=== PATIENT | female | born 1985 | race Caucasian/White ===

== ENCOUNTER 2017-03-09 08:15 | Inpatient (IN) | payer OTHER ==
[2017-03-09 09:03] VITALS: BMI 34.0
[2017-03-09 09:37] LABS: BASOPHIL 0.5 % (0-2.0); EOSINOPHIL 1.8 % (0-4.5); MCH 29.5 pg (25.7-33.7); MCHC 33.9 g/dl (32.0-36.0); MEAN CELL VOLUME 87.1 fl (80-96); MEAN PLT VOLUME 8.2 fl (7.5-11.1); PLATELET COUNT 216 K/MM3 (134-434); RDW 14.7 % (11.6-15.6); WHITE BLOOD COUNT 8.7 K/mm3 (4.0-10.0)
[2017-03-09 09:58] LABS: ANION GAP 9 (8-16); CALCIUM 8.6 mg/dL (8.5-10.1); CO2 22 mmol/L (21-32); CREATININE 0.4 mg/dL (0.55-1.02); GLUCOSE,RANDOM 91 mg/dL (74-106)
[2017-03-09 10:02] LABS: INR 0.96 (0.82-1.09); PROTHROMBIN TIME (PATIENT) 10.6 SEC (9.98-11.88)
[2017-03-09 10:04] LABS: ACTIVATED PTT 24.7 SECONDS (26.9-34.4)
[2017-03-09] MEDS ORDERED: DINOPROSTONE 10 MG VAGINAL SUPPOSITORY VG ONE (10:30)
[2017-03-09] MEDS ORDERED: PROMETHAZINE HCL 25 MG/1 ML VIAL IVPUSH ONE (11:06)
[2017-03-09] MEDS ORDERED: TUBERCULIN PPD 5 TU/0.1ML SYRINGE (IN PATIENT USE ONLY) ID ONE (11:06)
[2017-03-09] MEDS ORDERED: BUTORPHANOL TARTRATE 1 MG/ML VIAL IVPB ONE (11:06)
[2017-03-09] MEDS: DEXTROSE 5%-LACTATED RINGERS 1,000 ML IV SCH ×3 (12:17→22:52)
--- NOTE | 2017-03-09 12:44 | PN ---
Ante-Partal Exam - Subjective Subjective: Came to evaluate patient for variable decelerations and prolonged decelerations on monitor. Mom with cervidil in place - put in around 10:30 am. Since 11: 30 am patient has had 3 variable decelerations and one prolonged deceleration ( 3 minutes long) drea to the 90s. Decelerations not related to contractions. Patient feeling some tightening but no pain/contractions. No VB/LOF. +FM. FHTs have recovered after IV fluids, administration of O2 and position change. FHTs now 150 bpm with moderate variability and accelerations. Vital Signs: Vital Signs Temperature 98.0 F 03/09/17 10:00 Pulse Rate 89 03/09/17 11:59 Respiratory Rate 20 03/09/17 11:59 Blood Pressure 121/80 03/09/17 11:59 O2 Sat by Pulse Oximetry (%) Bleeding: No Headache: No Visual changes: No Right upper quadrant pain: No Pain (scale 1-10): 0 - Contractions Contractions: No Monitor Mode: External - Exam during Labor Heart Rate: 150 Variability: Moderate Category: II Monitor Accelerations: Present Monitor Decelerations: Variable Exam: Vaginal Dilatation (cm): 0 Effacement (%): 50 Presentation: Vertex Station: -1 - Assessment/Plan Assessment/Plan: 31 y/o with SIUP at 41.1 weeks, IOL for late term - AFVSS - FHTS cat 2 with nonrecurrent variable decelerations - resolved with resuscitative measures. Will continue monitoring. If has further decelerations may remove cervidil and try another induction method or give break from medication and try a second cervidil later this afternoon. If baby unable to tolerate labor may need to proceed with delivery. Pt aware of plan. - IOL, cervidil still in place, will remove at 10pm or earlier if needed based on FHR tracing - discussed plan of care with patient
--- NOTE | 2017-03-09 13:10 | HP ---
Past Medical History - Primary Care Physician PCP:: Ashely Griffin - Admission History of Present Illness: 31 y/o with SIUP at 41.1 weeks, IOL for late term. uncomplicated. H/O precipitous labor and delivery at home with her last child. No complaints today. +FM, no VB/LOF/CTx. GBS negative. HIV negative. HepBSag negative, RPR non reactive, O positive blood type. 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 Weeks Gestation by Dates: 42.0 ...EDC by Dates: 02/23/17 ...EDC by Sono: 03/01/17 Infectious Disease: No: STD's Psych: No: Anxiety, Bipolar, Depression Rheumatology: No: Lupus Endocrine: No: Diabetes Mellitus, Hyperthyroidism, Hypothyroidism - Past Surgical History Past Surgical History: Yes: None Hx Myomectomy: No Hx Transabdominal Cerclage: No - Smoking History Smoking history: Never smoked Have you smoked in the past 12 months: No - Alcohol/Substance Use Hx Alcohol Use: No - Social History Usual Living Arrangement: Yes: With Spouse ADL: Independent History of Recent Travel: No Home Medications - Allergies Allergies/Adverse Reactions: Allergies Allergy/AdvReac Type Severity Reaction Status Date / Time No Known Allergies Allergy Verified 03/09/17 08:49 - Home Medications Home Medications: Ambulatory Orders Vit #108/Iron/FA [ One Tablet] 1 tab PO DAILY 03/09/17 Review of Systems - Review of Systems Constitutional: reports: No Symptoms Eyes: reports: No Symptoms HENT: reports: No Symptoms Neck: reports: No Symptoms Cardiovascular: reports: No Symptoms Respiratory: reports: No Symptoms Gastrointestinal: reports: No Symptoms Genitourinary: reports: No Symptoms Breasts: reports: No Symptoms Reported Musculoskeletal: reports: No Symptoms Integumentary: reports: No Symptoms Neurological: reports: No Symptoms Endocrine: reports: No Symptoms Hematology/Lymphatic: reports: No Symptoms Psychiatric: reports: No Symptoms Physical Exam - Maternity Vital Signs: Vital Signs Temperature 98.0 F 03/09/17 10:00 Pulse Rate 89 03/09/17 11:59 Respiratory Rate 20 03/09/17 11:59 Blood Pressure 121/80 03/09/17 11:59 O2 Sat by Pulse Oximetry (%) Constitutional: Yes: Well Nourished, No Distress, Calm Eyes: Yes: Conjunctiva Clear, EOM Intact HENT: Yes: Atraumatic, Normocephalic Neck: Yes: Supple, Trachea Midline Cardiovascular: Yes: Regular Rate and Rhythm Lungs: Clear to auscultation - Abdominal Exam/OB Number of Fetuses: Single Presentation: Vertex Contractions: No Heart Rate (range): 150 Category: I Accelerations: Uniform Decelerations: None - Vaginal Exam/OB Speculum Exam: No Dilatation (cm): 0 Effacement (%): 50 Amniotic Membrane Status: Intact Presentation: Vertex/Position Station: -1 - Physical Exam Psychiatric: Yes: Alert, Oriented - Labs Lab Results: CBC, BMP 03/09/17 09:15 03/09/17 09:15 Hemorrhage Risk Assessment - Risk Factors Medium Risk Factors: Yes: None High Risk Factors: Yes: None Risk Score: 1 Risk Level: Medium Risk Problem List - Problems (1) Obesity affecting in third trimester Code(s): O99.213 - OBESITY COMPLICATING , THIRD TRIMESTER (2) Post-dates Code(s): O48.0 - POST-TERM Assessment/Plan 31 y/o with SIUP at 41.1 weeks for IOL, h/o precipitous delivery - AFVSS - FHTS cat 1 - cervidil placed at this time, for removal in 12 hours and assess for more cervical ripening vs. pitocin - GBS negative
--- NOTE | 2017-03-09 19:53 | PN ---
Ante-Partal Exam - Subjective Subjective: Pt seen/evaluated and doing well. Having some irregular cramps, otherwise no complaints. Vital Signs: Vital Signs Temperature 98.1 F 03/09/17 18:20 Pulse Rate 78 03/09/17 19:00 Respiratory Rate 20 03/09/17 19:00 Blood Pressure 124/79 03/09/17 19:00 O2 Sat by Pulse Oximetry (%) Bleeding: Yes Bleeding Description: Mild Headache: No Visual changes: No Right upper quadrant pain: No Pain (scale 1-10): 2 - Contractions Contractions: Yes Regularity: Irregular Intensity: Mild Monitor Mode: External - Exam during Labor Heart Rate: 150 Variability: Moderate Category: I Monitor Accelerations: Present Monitor Decelerations: Variable (nonrecurrent) Exam: Vaginal Dilatation (cm): 1 Effacement (%): 50 Amniotic Membrane Status: Intact Presentation: Vertex Station: -1 - Assessment/Plan Assessment/Plan: 31 y/o with SIUP at 41.1 weeks, IOL for late term - AFVSS - FHTS cat 1 at this time, periods of category 2 with nonrecurrent variable decelerations - will monitor continuously - cervidil removed and conteh baloon catheter placed inside the internal os - 30cc of saline filled balloon and put on slight tension by taping to leg. Pt tolerated procedure. If no cervical change in several hours, may add pitocin to regimen. - GBS negative - continue NPO and current management
--- NOTE | 2017-03-09 22:16 | PN ---
Ante-Partal Exam - Subjective Subjective: Pt with some cramping after placement of conteh balloon. Vital Signs: Vital Signs Temperature 98.2 F 03/09/17 21:00 Pulse Rate 74 03/09/17 21:00 Respiratory Rate 20 03/09/17 21:00 Blood Pressure 137/76 03/09/17 21:00 O2 Sat by Pulse Oximetry (%) Bleeding: Yes Bleeding Description: Mild Headache: No Visual changes: No Right upper quadrant pain: No Pain (scale 1-10): 2 - Contractions Contractions: Yes Regularity: Irregular Intensity: Mod/Strong Monitor Mode: External - Exam during Labor Heart Rate: 150 Variability: Moderate Category: I Monitor Accelerations: Present Monitor Decelerations: Variable Exam: Vaginal Dilatation (cm): 3 Effacement (%): 50 Amniotic Membrane Status: Intact Presentation: Vertex Station: -1 - Assessment/Plan Assessment/Plan: 31 y/o with SIUP at 41.1 weeks, IOL for late term - FHTS cat 1 now -- has non recurrent isolated variable decelerations noted throughout the day with spontaneous recovery, tracing otherwise with moderate variability and accelerations , for continuous monitoring - IOL, s/p cervidil and conteh balloon catheter placement, now cervix 3/50/-1. Will start pitocin - GBS negative.
[2017-03-09] MEDS ORDERED: OXYTOCIN 15 UNITS/ LR 250 ML 250 ML IVPB SCH (22:30)
[2017-03-10] MEDS: DEXTROSE 5%-LACTATED RINGERS 1,000 ML IV SCH ×2 (04:30→13:43)
--- NOTE | 2017-03-10 06:38 | PN ---
Ante-Partal Exam - Subjective Subjective: Pt feeling cramping overnight. Pitocin at 1. Vital Signs: Vital Signs Temperature 98.2 F 03/10/17 06:00 Pulse Rate 78 03/10/17 06:00 Respiratory Rate 20 03/10/17 06:00 Blood Pressure 135/83 03/10/17 06:00 O2 Sat by Pulse Oximetry (%) Bleeding: Yes Bleeding Description: Mild Headache: No Visual changes: No Right upper quadrant pain: No Pain (scale 1-10): 1 - Contractions Contractions: Yes Regularity: Irregular Intensity: Mild Monitor Mode: External - Exam during Labor Heart Rate: 145 Variability: Moderate Category: I Monitor Accelerations: Present Exam: Vaginal Dilatation (cm): 3.5 Effacement (%): 50 Amniotic Membrane Status: Ruptured (attempt at ROM this examination, scant fluid ) Presentation: Vertex Station: -1 - Assessment/Plan Assessment/Plan: 31 y/o with SIUP at 41.2 weeks, IOL for late term - FHTS cat 1 at this time , occasional variable decelerations, nonrecurrent and spontaneous recovery, continue to monitor - IOL, s/p cervidil and conteh ballooon catheter, pitocin started. Attempt at AROM, scant fluid if any noted, unclear if AROM successful, will attempt again in a few hours. - GBS negative
--- NOTE | 2017-03-10 08:07 | PN ---
Ante-Partal Exam - Subjective Subjective: Pt with variable decelerations, pitocin at 3. Pt feeling some cramps/pain with contractions - difficult to monitor contractions with external monitor. Vital Signs: Vital Signs Temperature 98.2 F 03/10/17 06:00 Pulse Rate 86 03/10/17 07:00 Respiratory Rate 20 03/10/17 07:00 Blood Pressure 125/79 03/10/17 07:00 O2 Sat by Pulse Oximetry (%) Bleeding: Yes Bleeding Description: Mild Headache: No Visual changes: No Right upper quadrant pain: No Pain (scale 1-10): 5 - Contractions Contractions: Yes Regularity: Regular Intensity: Mild/Mod Monitor Mode: External - Exam during Labor Heart Rate: 145 Variability: Moderate Category: II Monitor Accelerations: Present Monitor Decelerations: Variable Exam: Vaginal Dilatation (cm): 3 Effacement (%): 50 Amniotic Membrane Status: Ruptured Amniotic Fluid: Blood Stained (scant fluid) Presentation: Vertex Station: -1 - Assessment/Plan Assessment/Plan: 31 y/o with SIUP at 41.2 weeks gestation, IOL for late term - FHTs cat 2 with recurrent variable decelerations - IUPC placed and amnioinfusion started. Continuous monitoring at this time. With IUPC regular uterine contractions are noted. MVU currently 250. Continue amnioinfusion and pitocin at this time. - If variables do not improve will d/c pitocin to assess contractility and FHR pattern without augmentation, if continues to have recurrent variable decelerations despite resuscitative measures, due to patient being remove from delivery, may need delivery - discussed with patient - GBS negative
[2017-03-10] MEDS ORDERED: METHYLERGONOVINE MALEATE 0.2 MG/1 ML AMP IM PRN (11:23)
--- NOTE | 2017-03-10 11:27 | PN ---
Ante-Partal Exam - Subjective Subjective: Pt still with variable decelerations even with pitocin turned off. Having contractions on her own but no cervical change since 10pm last night. Vital Signs: Vital Signs Temperature 98.5 F 03/10/17 08:00 Pulse Rate 64 03/10/17 08:00 Respiratory Rate 20 03/10/17 08:00 Blood Pressure 137/87 03/10/17 08:00 O2 Sat by Pulse Oximetry (%) Bleeding: Yes Bleeding Description: Mild Headache: No Visual changes: No Right upper quadrant pain: No Pain (scale 1-10): 3 - Contractions Contractions: Yes Regularity: Regular Intensity: Moderate Monitor Mode: External - Exam during Labor Heart Rate: 145 Variability: Moderate Category: II Monitor Accelerations: Present Monitor Decelerations: Variable Exam: Vaginal Dilatation (cm): 3 Effacement (%): 50 Amniotic Membrane Status: Ruptured Presentation: Vertex Station: -1 - Assessment/Plan Assessment/Plan: 31 y/o with SIUP at 41.2 weeks, failed IOL and continued category 2 tracing - FHTS cat 2 - remote from delivery and pt not making progress without pitocin, variables worsen and become recurrent with pitocin. Discussed options with patient and plan is for primary delivery. R/b/A discussed, consents signed - anesthesia aware - yady DELEON, SCDs
--- NOTE | 2017-03-10 12:45 | OP ---
Operative Note - Note: Operative Date: 03/10/17 ([id number]) Pre-Operative Diagnosis: failed induction of labor, recurrent variable decelerations Operation: primary low transverse delivery Findings: OP presentation (direct) of fetus Post-Operative Diagnosis: Same as Pre-op Surgeon: Ashely Griffin Fourdrinier Tender: Simeon Christie Anesthesiologist/MANUFACTURING MACHINE OPERATOR: Neo Cardoza Anesthesia: Spinal Specimens Removed: placenta Estimated Blood Loss (mls): 600 Operative Report Dictated: Yes
[2017-03-10] MEDS: OXYTOCIN 20 UNITS in 0.9% NS 1,000 ML IV SCH ×2 (13:36→22:36)
[2017-03-10] MEDS: IBUPROFEN 800 MG/8 ML IJ IVPB PRN (13:42)
[2017-03-10] MEDS: PRENATAL VITAMINS W/ FOLIC ACID TABLET (FP) PO SCH (13:43)
[2017-03-10] MEDS ORDERED: ONDANSETRON 4 MG/2 ML VIAL IVPUSH PRN (15:19)
[2017-03-10] MEDS ORDERED: PROMETHAZINE HCL 25 MG/1 ML VIAL IVPUSH ONE (15:19)
[2017-03-11] MEDS: IBUPROFEN 800 MG/8 ML IJ IVPB PRN (01:20)
[2017-03-11 07:31] LABS: BASOPHIL 0.2 % (0-2.0); EOSINOPHIL 0.8 % (0-4.5); MCH 30.1 pg (25.7-33.7); MCHC 33.8 g/dl (32.0-36.0); NEUTROPHILS 79.7 % (42.8-82.8); PLATELET COUNT 161 K/MM3 (134-434); RDW 15.3 % (11.6-15.6); WHITE BLOOD COUNT 10.3 K/mm3 (4.0-10.0)
--- NOTE | 2017-03-11 08:12 | PN ---
Progress Note, Physician Chief Complaint: s/p c/s POD 1, pt offers no complainta - Current Medication List Current Medications: Active Medications Acetaminophen (Tylenol -) 650 mg PO Q4H PRN PRN Reason: FEVER OR PAIN Bisacodyl (Dulcolax Suppository -) 10 mg RC PRN PRN PRN Reason: CONSTIPATION Diphenhydramine HCl (Benadryl Injection -) 25 mg IVPUSH Q4H PRN PRN Reason: itching Dextrose/Lactated Ringer's (D5-Lr -) 1,000 mls @ 125 mls/hr IV ASDIR [facility] Last Admin: 03/10/17 13:43 Dose: Not Given Oxytocin/Sodium Chloride (Normal Saline+20 Units Oxytocin -) 1,000 mls @ 125 mls/hr IV ASDIR [facility] Last Admin: 03/10/17 22:36 Dose: 125 mls/hr Ibuprofen (Caldolor Injection -) 800 mg IVPB Q6H PRN PRN Reason: PAIN Stop: 03/11/17 11:11 Last Admin: 03/11/17 01:20 Dose: 800 mg Ibuprofen (Motrin -) 600 mg PO Q4H PRN PRN Reason: PAIN Methylergonovine Maleate (Methergine Injection -) 0.2 mg IM Q4H PRN PRN Reason: Excessive Bleeding (L&D) Oxycodone HCl (Roxicodone -) 5 mg PO Q4H PRN PRN Reason: PAIN LEVEL 1-5 Oxycodone HCl (Roxicodone -) 10 mg PO Q4H PRN PRN Reason: PAIN LEVEL 6-10 Multivit/Folic Acid/Iron ( Vitamins (Sjr) -) 1 tab PO DAILY [facility] Last Admin: 03/10/17 13:43 Dose: Not Given Simethicone (Mylicon -) 80 mg PO Q4H PRN PRN Reason: GAS - Objective Vital Signs: Vital Signs Temperature 97.9 F 03/11/17 05:33 Pulse Rate 81 03/11/17 05:33 Respiratory Rate 18 03/11/17 05:38 Blood Pressure 127/73 03/11/17 05:33 O2 Sat by Pulse Oximetry (%) 99 03/10/17 13:25 Constitutional: Yes: Well Nourished, No Distress, Calm Eyes: Yes: WNL HENT: Yes: WNL Neck: Yes: Supple, Trachea Midline Cardiovascular: Yes: Regular Rate and Rhythm Respiratory: Yes: WNL Gastrointestinal: Yes: Normal Bowel Sounds, Soft ...Rectal Exam: Yes: Deferred Genitourinary: Yes: WNL Breast(s): Yes: WNL Musculoskeletal: Yes: WNL Extremities: Yes: WNL Edema: No Peripheral Pulses WNL: Yes Integumentary: Yes: WNL Wound/Incision: Yes: Dressing Dry and Intact Neurological: Yes: Alert, Oriented ...Motor Strength: WNL Psychiatric: Yes: Alert, Oriented Labs: CBC, BMP 03/11/17 07:00 03/09/17 09:15 INR, PTT INR 0.96 (0.82-1.09) 03/09/17 09:15 Assessment/Plan Condition stable on first POD, urine output 400 overnight. Advance IV fluid to 150cc/Hr. Continue urine output monitoring. Continue post/op monitoring.
[2017-03-11] MEDS: IBUPROFEN 600 MG TABLET (FP) PO PRN ×3 (09:05→22:35)
[2017-03-11] MEDS: SIMETHICONE 80 MG TAB.CHEW (FP) PO PRN ×3 (09:05→22:34)
[2017-03-11] MEDS: ACETAMINOPHEN 325 MG TABLET (FP) PO PRN ×3 (09:09→22:35)
--- NOTE | 2017-03-11 10:20 | PN ---
Progress Note (short form) - Note Progress Note: Anesthesia post op note. POD#1 . S/P , under spinal with duramorph. Patient seen and examined. VSS no complaints. No apparent post anesthesia complications. Signed off.
[2017-03-11] MEDS ORDERED: BISACODYL 10 MG SUPP.RECT RC PRN (11:24)
[2017-03-11] MEDS: OXYTOCIN 20 UNITS in 0.9% NS 1,000 ML IV SCH (12:08)
[2017-03-11] MEDS: PRENATAL VITAMINS W/ FOLIC ACID TABLET (FP) PO SCH (12:14)
[2017-03-11] MEDS: oxyCODONE HCL 5 MG TABLET PO PRN ×2 (16:20→22:35)
--- NOTE | 2017-03-11 18:28 | OP ---
DATE OF OPERATION: 03/10/2017 PREOPERATIVE DIAGNOSES: Single intrauterine at 41.2 weeks gestation, failed induction of labor, as well as recurrent variable decelerations. POSTOPERATIVE DIAGNOSES: Single intrauterine at 41.2 weeks gestation, failed induction of labor, as well as recurrent variable decelerations. PROCEDURE: Primary low-transverse section. SURGEON: Ashely Griffin MD CORDUROY CUTTER OPERATOR: CARLA Krishnan ESTIMATED BLOOD LOSS: 600 mL. COMPLICATIONS: None. COUNTS: Sponge, needle and instrument count correct. SPECIMENS: Placenta, sent to Pathology for permanent evaluation. DISPOSITION: Stable to recovery room. BRIEF HISTORY AND PROCEDURE: Patient is a 31-year-old, G2, P1 female, who was admitted to [facility] on March 09, 2017, for an induction of labor secondary to late term. The patient was given a Cervidil throughout the day March 09, a Priest balloon catheter was placed the evening of March 09, and eventually Pitocin was started after the patient did dilate to 3 cm after the Priest balloon was removed. The heart tracing was noted to have variable decelerations, recurrent, when the Pitocin was started, however, when the Pitocin was turned off, the decelerations were intermittent. However, the patient was having inadequate contractions without Pitocin. Pitocin was again restarted and recurrent variable decelerations were appreciated with the Pitocin. An amnioinfusion was completed to help alleviate cord compression with little improvement in the tracing. After observation overnight, the patient had made no cervical change and at approximately 10:30 in the morning the patient was given her options and we elected to undergo a primary delivery secondary to failed induction of labor and recurrent variable decelerations with Pitocin. Consents for the procedure were signed. The patient was then taken back to the operating room, where she was given spinal anesthesia and then placed in a dorsal supine position and she was prepped and draped in the usual sterile fashion and a Priest catheter was placed under sterile conditions. A hard timeout was performed. A Pfannenstiel skin incision was created in the skin with a scalpel which was carried to the underlying layer of rectus fascia with the Bovie. The fascia was incised on either side of the midline with the Bovie and this incision was carried in the superolteral direction with the bovie, and then the fascia was tented upward and dissected off the underlying rectus muscle with the Bovie. The musculature was retracted laterally. The peritoneum was entered sharply with Metzenbaum scissors and dissected sharply, and a bladder blade was then inserted. A transverse incision was created in the lower uterine segment and carried in a superolateral direction bluntly. The was then delivered from the direct occiput posterior position without difficulty. The anterior shoulder, which was the left, delivered with ease, along with the remainder of the infant. The cord was clamped twice and cut in between, taken over to the warmer to be assessed by the neonatology staff. Apgars were 8 and 9. The placenta was then delivered manually and extracted completely. The uterus was exteriorized from the abdomen , inspected, and cleared of all amniotic membrane and debris with a dry lap sponge. The hysterotomy was reapproximated in a double-layer closure, the 1st was 1 Vicryl suture in a running locked fashion, 2nd layer with a 0 Biosyn suture in running locked fashion. Excellent hemostasis was achieved. The posterior cul-de-sac was suctioned. The uterus was placed back into the abdomen. The hysterotomy was noted to be hemostatic. The peritoneum was then reapproximated in a running fashion using 2-0 chromic. The musculature was reapproximated in a single interrupted suture using 2-0 chromic suture. The fascia was reapproximated in a running fashion with 1 Vicryl. Subcutaneous tissue was irrigated and reapproximated in a running fashion using 1 Vicryl suture. The subcuticular stitch was placed in the skin for final layer of closure, and Steri-Strips were then applied. All sponge, needle, and instrument counts reported to be correct. The patient tolerated the procedure well, is recovering in stable condition in the PACU at the time of this dictation. ASHELY GRIFFIN DO /[id number] MTDD
[2017-03-12] MEDS: IBUPROFEN 600 MG TABLET (FP) PO PRN ×2 (04:03→10:52)
[2017-03-12] MEDS: ACETAMINOPHEN 325 MG TABLET (FP) PO PRN ×2 (04:03→20:11)
[2017-03-12] MEDS: SIMETHICONE 80 MG TAB.CHEW (FP) PO PRN ×2 (04:03→20:11)
[2017-03-12] MEDS: oxyCODONE HCL 5 MG TABLET PO PRN ×3 (04:04→20:10)
[2017-03-12] MEDS ORDERED: FLU VACCINE QUAD 60 MCG/0.5 ML (MDV 17-18) IM ONE (10:00)
[2017-03-12] MEDS ORDERED: FLU VACC QS2017-18 36MOS UP/PF 60 MCG/0.5 ML SYRINGE IM ONE (10:00)
[2017-03-12] MEDS: PRENATAL VITAMINS W/ FOLIC ACID TABLET (FP) PO SCH (10:52)
[2017-03-13] MEDS: oxyCODONE HCL 5 MG TABLET PO PRN ×2 (02:30→07:33)
[2017-03-13] MEDS: ACETAMINOPHEN 325 MG TABLET (FP) PO PRN ×2 (02:30→07:35)
[2017-03-13] MEDS: SIMETHICONE 80 MG TAB.CHEW (FP) PO PRN ×2 (02:30→07:35)
[2017-03-13 07:33] LABS: BASOPHIL 0.3 % (0-2.0); EOSINOPHIL 2.1 % (0-4.5); MCH 29.8 pg (25.7-33.7); MCHC 33.4 g/dl (32.0-36.0); MEAN CELL VOLUME 89.3 fl (80-96); NEUTROPHILS 69.7 % (42.8-82.8); PLATELET COUNT 184 K/MM3 (134-434); RDW 15.2 % (11.6-15.6)
[2017-03-13] MEDS: PRENATAL VITAMINS W/ FOLIC ACID TABLET (FP) PO SCH (10:45)
[2017-03-13 11:25] VITALS: BP 129/79; PULSE 77; TEMP 98.9
--- NOTE | 2017-03-13 12:21 | PN ---
Progress Note (SOAP) - Subjective Chief Complaint: Pt seen on 03/12/17 doing well - Current Medications Current Medications: Active Medications Acetaminophen (Tylenol -) 650 mg PO Q4H PRN PRN Reason: FEVER OR PAIN Last Admin: 03/13/17 07:35 Dose: 650 mg Bisacodyl (Dulcolax Suppository -) 10 mg RC PRN PRN PRN Reason: CONSTIPATION Ibuprofen (Motrin -) 600 mg PO Q4H PRN PRN Reason: PAIN Last Admin: 03/12/17 10:52 Dose: 600 mg Methylergonovine Maleate (Methergine Injection -) 0.2 mg IM Q4H PRN PRN Reason: Excessive Bleeding (L&D) Multivit/Folic Acid/Iron ( Vitamins (Sjr) -) 1 tab PO DAILY [facility]TH[facility] Last Admin: 03/13/17 10:45 Dose: 1 tab Simethicone (Mylicon -) 80 mg PO Q4H PRN PRN Reason: GAS Last Admin: 03/13/17 07:35 Dose: 80 mg - Objective Vital Signs: Vital Signs Temperature 98.9 F 03/13/17 07:30 Pulse Rate 77 03/13/17 07:30 Respiratory Rate 20 03/13/17 07:30 Blood Pressure 129/79 03/13/17 07:30 O2 Sat by Pulse Oximetry (%) 99 03/10/17 13:25 Constitutional: Yes: Well Nourished, No Distress Labs Lab Results: CBC, BMP 03/13/17 06:50 03/09/17 09:15 Assessment/Plan POD 3 DC home
--- NOTE | 2017-03-14 07:18 | DS ---
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 Laurita Davis Sales Clerk discharge instructions Physical activity Resume your normal everyday activity as tolerated no heavy lifting or exercise until seen by your surgeon. You may walk unlimited loraine of and climb stairs. You may resume driving the car when you feel safe and comfortable behind the wheel. No sexual activity as instructed by Dr. Davis. Wound care If you have a bandage, leave it on, and keep dry for 48-72 hours. After that time discard the outer bandage. If they are tapes on the skin under the out of bandage leave them in place. They will peel off in the next 7 to 10 days. Do Not Peel them off. You may shower the day after surgery. If there are tapes present on the skin, you may shower over them. Diet There are no dietary restrictions. Eat healthy, high-fiber foods. Drink 6 to 8 glasses of liquid each day. This will assist in keeping your bowels are regular. Pain management You may take Tylenol or acetaminophen or Ibuprofen (for example, Motrin, Advil etc.) from my pain prescription medication is ordered should be taken as prescribed for moderate to severe pain. Call Dr. Davis for any of the following: Severe pain not relieved by medication Fever of 101 or higher Excessive bleeding or drainage on dressing Inability to urinate Call the office at [phone] for an appointment in seven days. Referrals: Lauriat Davis MD [Staff Physician] - Disposition: HOME - Home Medications Comprehensive Discharge Medication List: Ambulatory Orders Vit #108/Iron/FA [ One Tablet] 1 tab PO DAILY 03/09/17 Ibuprofen [Motrin -] 600 mg PO QID PRN #28 tablet 03/13/17
--- NOTE | 2017-03-15 15:49 | PATH ---
Surgical Pathology Report Patient Name: MATIAS JOYNER Med. Rec. #: [id number] /Age/Gender: 1985 (Age: 31) / F Account: [id number] Location: [facility] OBS/TESTER SEMICONDUCTOR PACKAGES Taken: 03/10/2017 Received: 03/12/2017 Reported: 03/15/2017 Physicians: Ashely Griffin M.D. Specimen(s) Received PLACENTA Clinical History , 2005, post dates nonreassuring heart rate, failure to progress Final Diagnosis PLACENTA, DELIVERY: SMALL (322 GRAM) FOCALLY DISRUPTED THIRD TRIMESTER PLACENTA WITH 3 VESSEL UMBILICAL CORD AND UNREMARKABLE PLACENTAL MEMBRANES. Electronically Signed Carlos Becker M.D. Gross Description The specimen is received fresh labeled placenta and is a 322 gram, 17.5 x 13.5 x 1.5 cm. placenta with attached membranes and umbilical cord. The attached membranes are mendez, translucent with focal opacities and insert marginally. The umbilical cord measures 31 cm. in length and averages 1.1 cm. in diameter. The cord inserts eccentrically, 3.5 cm. to the nearest margin. No true knots or strictures are identified. Cut surface of the umbilical cord reveals 3 vessels. The surface is polo-blue with minimal fibrin deposition and appropriate caliber vessels. The maternal surface is red-brown with focal defects. Sectioning reveals red-brown, spongy parenchyma. No lesions are identified. Perfect Binder Operator sections are submitted in three cassettes as follows: 1- membrane rolls and umbilical cord; 2-3- full thickness sections of placenta. 03/14/2017 [facility]03/14/2017
== END 2017-03-13 12:50 | disposition home or self-care (01) | DRG 766 ==
LOC: MERGE 08:15 → JLDR 08:15 → J3W 03-10 14:00
PROVIDERS: ADMIT Obstetrics & Gynecology; ATTEND Obstetrics & Gynecology
PROC: 10D00Z1 Extraction of Products of Conception, Low, Open Approach (ICD-10-PCS; principal; 2017-03-10)
DX: O76 Abnormality in fetal heart rate and rhythm complicating labor and delivery (principal); O61.8 Other failed induction of labor; O48.0 Post-term pregnancy; O99.214 Obesity complicating childbirth; E66.9 Obesity, unspecified; Z68.34 Body mass index [BMI] 34.0-34.9, adult; Z3A.41 41 weeks gestation of pregnancy; Z37.0 Single live birth
CPT/HCPCS: 36415; 80048; 85025; 85610; 85730; 86593; 86850; 86900; 86901; 88307-TC; 90686; G0008

== ENCOUNTER 2018-01-12 17:55 | Emergency (ER) | payer OTHER ==
[2018-01-12 18:32] VITALS: TEMP 98.4; BMI 26.5
--- NOTE | 2018-01-12 19:02 | PDOC ---
History of Present Illness - General Chief Complaint: Bite Stated Complaint: DOG BITE Time Seen by Provider: 01/12/18 18:32 History Source: Patient, Family (Daughter) Exam Limitations: No Limitations - History of Present Illness Initial Comments: 32 y/o female presenting to [facility] complaining of 2x wounds to right lower extremity sustained by dog bite. Pt's family dog and neighbor's family dog began fighting, and pt was incidentally bitten. The wounds were bandaged with dry gauss prior to arrival. Family reports neighbor's dog is a well known family dog with a history of aggressive behavior in the past; incident was not a surprise; denies noticing strange behavior. Pt unable to recall last tetanus booster. Past History - Past Medical History Allergies/Adverse Reactions: Allergies Allergy/AdvReac Type Severity Reaction Status Date / Time No Known Allergies Allergy Verified 01/12/18 18:32 Home Medications: Ambulatory Orders Vit 108/Iron/Folic AC [ One Tablet] 1 tab PO DAILY 03/09/17 Ibuprofen [Motrin -] 600 mg PO QID PRN #28 tablet 03/13/17 Amox-Tr/K Cl [Augmentin - 875Mg Tablet] 1 tab PO BID 5 Days #10 tablet 01/12/18 Asthma: No Cancer: No Cardiac Disorders: No COPD: No Diabetes: No HTN: No Seizures: No Thyroid Disease: No Comment:: Pt denies past medical history. - Surgical History Comments:: Pt denies past surgical history or recent hospitalizations. - Suicide/Smoking/Psychosocial Hx Smoking History: Never smoked Have you smoked in the past 12 months: No Information on smoking cessation initiated: No Hx Alcohol Use: No Drug/Substance Use Hx: No Substance Use Type: None Hx Substance Use Treatment: No Review of Systems - Review of Systems Able to Perform ROS?: Yes Is the patient limited Congolese proficient: No Constitutional: No: Chills, Diaphoresis, Fever Respiratory: No: Shortness of Breath Cardiac (ROS): No: Chest Pain Integumentary: Yes: Lesions *Physical Exam - Vital Signs Last Vital Signs Temp Pulse Resp BP Pulse Ox 98.4 F 89 19 141/88 100 01/12/18 18:30 01/12/18 18:30 01/12/18 18:30 01/12/18 18:30 01/12/18 18:30 - Physical Exam Comments: Constitutional: Well-developed, well-nourished female in no apparent life threat. Found sitting upright in a chair. Alert and oriented x4. Answered all questions appropriately and completely. Speech was non-labored, non-pressured. Cardiovascular: Regular rate and regular rhythm. No murmur, rubs, clicks, or gallops. Peripheral pulses: Radial pulses full Respiratory: Clear to auscultation bilaterally. No stridor, no wheezing, no rhonchi. Skin: Anterior surface of right lower extremity: 1x superficial puncture wound approx. 2.5cm; blood oozing; no debris. Posterior surface of right lower extremity: 1x superficial puncture wound approx. 2.5cm; blood oozing; no debris. No spreading erythema or streaking noted on lower or upper extremity. Medical Decision Making - Medical Decision Making Patient has two bite wounds on right lower extremity. Patient is not aware of her last tetanus booster. Since history consistent with provoked attack and low incidence of rabies in our area, will not give rabies prophylaxis. No foreign bodies present. Discussed watching animal closely for odd behavior. Wounds cleaned and irrigated with NS; dry sterile bandages to cover; no sutures required. Will administer tetanus booster and prescribe Augmentin. Suggested f/ u with PMD. *DC/Admit/Observation/Transfer Diagnosis at time of Disposition: Dog bite Qualifiers: Encounter type: initial encounter Qualified Code(s): W54.0XXA - Bitten by dog, initial encounter - Discharge Dispostion Disposition: HOME Condition at time of disposition: Good Decision to Admit order: No - Prescriptions Prescriptions: Amox-Tr/K Cl [Augmentin - 875Mg Tablet] 1 tab PO BID 5 Days #10 tablet - Referrals - Patient Instructions Printed Discharge Instructions: How to Care for a Domestic Animal Bite, DI for Animal Bites Additional Instructions: I have sent a prescription for an antibiotic called Augmentin to [facility]. Take this medication twice a day for 5 days. Augmentin may cause a mild upset stomach. Try eating yogurt if this happens. Please do not submerge your wound in water for the next 48 hours. Return to the emergency room if you develop fever, chills, sweats, or the wound becomes really red. These can all be signs of an infection. Print Language: TELUGU - Post Discharge Activity
--- NOTE | 2018-01-12 19:26 | PDOC ---
Attending Attestation - HPI HPI: The patient is a 32 F, with no significant PMHx, who presents s/p dog bite. The patient was walking her dog and says that they stopped to talk with their neighbor and her pitbull. The patient states that the pitbull immediately lunged for her dog. She tried pulling them apart and was attacked. She has a subsequent puncture wound on the front and back of her right ferrari. She is able to ambulate. <Dorys Sapp - Last Filed: 01/12/18 19:50> - Resident Resident Name: Mo Moreno - ED Attending Attestation I have performed the following: I have examined & evaluated the patient, The case was reviewed & discussed with the resident, I agree w/resident's findings & plan, Exceptions are as noted - Physicial Exam PE: GENERAL: Awake, alert, and fully oriented, in no acute distress HEAD: No signs of trauma EYES: PERRLA, EOMI, sclera anicteric, conjunctiva clear ENT: Auricles normal inspection, hearing grossly normal, nares patent, oropharynx clear without exudates. Moist mucosa NECK: Normal ROM, supple, no lymphadenopathy, JVD, or masses EXTREMITIES: Normal range of motion, no edema. No clubbing or cyanosis. No cords, erythema, or tenderness NEUROLOGICAL: Cranial nerves II through XII grossly intact. Normal speech. + Antalgic gait. SKIN: Warm, Dry, normal turgor, no rashes. +Puncture wounds to L ferrari and calf, no active bleeding. - Medical Decision Making Patient with two puncture wounds to the lower extremity, no active bleeding, no exposure of muscle or tendon. Will irrigate and allow to heal by secondary intention. Will give tdap and abx. Dog is a neighbor's dog, it will be possible to observe for signs of illness. Rabies prophylaxis is not necessary at this point. <Lor Plasencia - Last Filed: 01/12/18 19:57>
[2018-01-12] MEDS ORDERED: DIPHTH,PERTUSS(ACELL),TET 0.5 ML DISP.SYRIN IM ONE (19:31)
[2018-01-12 21:08] VITALS: BP 111/72; PULSE 80
== END 2018-01-12 21:06 | disposition home or self-care (01) ==
LOC: JER 17:55
PROC: 3E0234Z Introduction of Serum, Toxoid and Vaccine into Muscle, Percutaneous Approach (ICD-10-PCS; principal; 2018-01-12)
DX: S81.851A Open bite, right lower leg, initial encounter (principal); W54.0XXA Bitten by dog, initial encounter; Y93.K1 Activity, walking an animal; Y92.414 Local residential or business street as the place of occurrence of the external cause; Y99.8 Other external cause status
CPT/HCPCS: 90715; 99281-25